=== PATIENT | male | born 1950 | race Caucasian/White ===

== ENCOUNTER 2016-11-14 10:35 | Day surgery (SDC) | payer MEDICARE, BC ==
[~2016-11-14 10:35] MED LIST: Buffered Lidocaine 0.9% SYRIN* 5 ML/SYR SYRINGE INTRADERM ONE; Famotidine IV* 10 MG/ML 2 ML (20 mg) IV ONE; Morphine INJ* 2 MG/ML 1 ML SYRINGE IV PRN; PROCHLORPERAZINE INJ 5 MG/ML 2 ML VIAL IV PRN; Scopolamine 1.5 mg* PATCH TRANSDERM PRN; fentaNYL* 50 MCG/ML 2 ML VIAL (100 MCG VIAL) IV PRN; oxyCODONE/Acetamin 5/325 MG* TAB PO PRN
[2016-11-14] MEDS ORDERED: Buffered Lidocaine 0.9% SYRIN* 5 ML/SYR SYRINGE ONE (10:43)
[2016-11-14] MEDS ORDERED: Famotidine IV* 10 MG/ML 2 ML (20 mg) ONE (10:43)
[2016-11-14] MEDS ORDERED: Ketorolac INJ* 30 MG/ML 1 ML VIAL ONE (10:43)
[2016-11-14] MEDS ORDERED: fentaNYL* 50 MCG/ML 2 ML VIAL (100 MCG VIAL) ONE (10:49)
[2016-11-14] MEDS ORDERED: KETAMINE HCL* 50 MG/ML 10 ML VIAL ONE (10:49)
[2016-11-14] MEDS ORDERED: Midazolam* 1 MG/ML 5 ML VIAL (5 MG) ONE (10:49)
[2016-11-14] MEDS ORDERED: Lidocaine 1% INJ* 10 MG/ML 30 ML SDV ONE (11:21)
[2016-11-14] MEDS ORDERED: Bupivacaine 0.5% W/EPI SDV* 10 ML VIAL INJ ONE (11:21)
[2016-11-14] MEDS ORDERED: Propofol* 10 MG/ML 20 ML BTL IV PUSH ONE (12:16)
[2016-11-14] MEDS ORDERED: Dexamethasone IV* 4 MG/ML 1 ML (4 MG) ONE (12:16)
[2016-11-14] MEDS ORDERED: Ondansetron INJ* 2 MG/ML VIAL ONE (12:16)
[2016-11-14] MEDS ORDERED: Lidocaine 2% PF * 5 ML VIAL ONE (12:16)
[2016-11-14] MEDS ORDERED: hydrALAZINE IV* 20 MG/ML VIAL ONE (12:40)
[2016-11-14 13:46] VITALS: BP 131/85
--- NOTE | 2016-11-15 00:11 | OP ---
CC: Enrique Sheridan DO * DATE OF OPERATION: 11/14/16 - [facility] DATE OF : 52 SURGEON: Dr. De La Cruz. TRAVELING REPRESENTATIVE: Sola Huddleston NP ANESTHESIOLOGIST: Dr. Mi. ANESTHESIA: LMAC anesthesia. PRE-OP DIAGNOSIS: Recurrent right inguinal hernia. POST-OP DIAGNOSIS: Recurrent right inguinal hernia. OPERATIVE PROCEDURE: Open repair of recurrent right inguinal hernia with mesh. DESCRIPTION OF PROCEDURE: The patient was supine on the operative table. After adequate intravenous sedation, compression stockings, Bharat Hugger warmer, and intravenous antibiotics, the right groin was clipped and prepped with antiseptic, draped in a sterile fashion. Local infiltrative anesthesia was administered. Previous incision was again reentered over about 8 cm. Dissection was carried down to the external oblique. Scarring was identified. The cord structures were dissected up and retracted with a Hulett drain. The direct space was without any evidence of recurrence. There was an indirect space hernia. This was dissected free. It was somewhat adherent to the cord structures, but it was dissected free and reduced and a cone mesh plug was placed into the internal ring, sutured there with 2-0 Polysorb. A second piece of mesh was placed over inguinal floor, sutured at the tubercle. Tails were split, brought around the cord structures and tacked down laterally. This piece of mesh was also sutured at the transversus abdominis and at the inguinal ligament. The external oblique was closed over top with 2-0 Polysorb, Sj's with 3-0 Polysorb, skin with 4-0 Surgipro followed by sterile dressing. He tolerated the procedure well, was awakened and brought to Recovery in good condition. No complications. No drains. No pathologic specimen. Sponge and instrument counts correct. Estimated blood loss is 10 mL. [id number]/[facility] #: [id number] [facility] HEALTHStephanie
[2016-11-17] MEDS ORDERED: Scopolomine PATCH Remove* 1 NOTE MISC PATCH OFF ONE (05:56)
== END 2016-11-14 13:45 | disposition home or self-care (01) ==
LOC: OR 10:35
PROVIDERS: ATTEND Surgery
PROC: 0YU50JZ Supplement Right Inguinal Region with Synthetic Substitute, Open Approach (ICD-10-PCS; principal; 2016-11-14 12:00)
DX: K40.91 Unilateral inguinal hernia, without obstruction or gangrene, recurrent (principal); Z87.891 Personal history of nicotine dependence; I10 Essential (primary) hypertension
CPT/HCPCS: C1781; J0360; J1100; J1885; J2001; J2250; J2405; J2704; J3010

== ENCOUNTER 2023-10-26 06:06 | Observation (INO) ==
[2023-10-26 06:33] LABS: ABS Lymphocytes 0.6 10^3/uL (1.0-4.8); ABS Monocytes 0.2 10^3/uL (0.0-1.1); ABS Neutrophils 4.7 10^3/uL (1.5-7.6); Hematocrit 43.2 % (38-53); Hemoglobin 14.7 g/dL (13.2-16.3); Mean Corpuscular Hgb Conc 34.1 g/dL (31-36); Mean Corpuscular Volume 93.9 fL (80-97); Mean Platelet Volume 9.1 fL (7.5-11.2); Platelet Count 143 10^3/uL (150-450); White Blood Count 5.6 10^3/uL (3.6-10.2)
[2023-10-26 06:47] LABS: INR 1.43 (0.83-1.13)
[2023-10-26 07:20] LABS: Albumin 4.3 g/dL (3.2-5.2); Albumin/Globulin Ratio 1.8 (1-3); Calcium 10.4 mg/dL (8.6-10.3); Creatinine, Serum 1.13 mg/dL (0.67-1.17); Globulin 2.4 g/dL (2-4); Potassium 4.4 mmol/L (3.5-5.0); Total Bilirubin 1.7 mg/dL (0.2-1.0); Total Protein 6.7 g/dL (6.4-8.9); eGFR CKD-EPI 69.1 (>60)
[2023-10-26 08:14] LABS: CRP High Sensitivity 0.83 mg/L (<2.00)
[2023-10-26] MEDS ORDERED: Ondansetron 4 mg VIAL 2 MG/ML 2 ml VIAL IV PRN (10:40)
[2023-10-26] MEDS: cefTRIAXone 1 gm/50 mL D5W 1 GM/50 ML BAG IV SCH (11:59)
[2023-10-26] MEDS: Enoxaparin 80 MG/0.8 ML SYR SUBCUT SCH (21:40)
[2023-10-27 06:02] LABS: ABS Lymphocytes 0.8 10^3/uL (1.0-4.8); ABS Monocytes 0.5 10^3/uL (0.0-1.1); ABS Neutrophils 5.8 10^3/uL (1.5-7.6); Eosinophil % 0.1 %; Hematocrit 41.5 % (38-53); Hemoglobin 14.1 g/dL (13.2-16.3); Lymphocyte % 11.4 %; Mean Corpuscular Hemoglobin 31.9 pg (27-33); Mean Corpuscular Volume 93.9 fL (80-97); Mean Platelet Volume 10.1 fL (7.5-11.2); Platelet Count 150 10^3/uL (150-450); Red Blood Count 4.42 10^6/uL (4.06-5.63); Red Cell Distribution Width 13.2 % (12-17); White Blood Count 7.2 10^3/uL (3.6-10.2)
[2023-10-27 06:29] LABS: ALT 34 U/L (7-52); Albumin 3.7 g/dL (3.2-5.2); Albumin/Globulin Ratio 1.7 (1-3); Alkaline Phosphatase 69 U/L (35-149); Anion Gap 5 mmol/L (2-16); Blood Urea Nitrogen 25 mg/dL (6-24); CO2 Carbon Dioxide 31 mmol/L (22-32); Calcium 8.9 mg/dL (8.6-10.3); Chloride 101 mmol/L (101-111); Creatinine, Serum 0.95 mg/dL (0.67-1.17); Globulin 2.2 g/dL (2-4); Glucose 103 mg/dL (70-100); Sodium 137 mmol/L (135-145); Total Bilirubin 1.3 mg/dL (0.2-1.0); Total Protein 5.9 g/dL (6.4-8.9)
[2023-10-27] MEDS: CMCS:DAPAGLIFLOZIN 10 MG TAB (NF) PO SCH (09:25)
[2023-10-27 10:08] LABS: Potassium Redraw 4.7 mmol/L (3.5-5.0)
[2023-10-27] MEDS ORDERED: Naloxone 0.4 mg VIAL 0.4 mg/ml 1 ml VIAL IV PRN (10:52)
[2023-10-27] MEDS ORDERED: fentaNYL 100 mcg/2 ml 50 MCG/ML VIAL IV PRN (10:52)
[2023-10-28 05:47] LABS: ABS Lymphocytes 1.1 10^3/uL (1.0-4.8); ABS Monocytes 0.5 10^3/uL (0.0-1.1); ABS Neutrophils 3.5 10^3/uL (1.5-7.6); Eosinophil % 0.5 %; Hematocrit 40.4 % (38-53); Hemoglobin 14.1 g/dL (13.2-16.3); Lymphocyte % 20.6 %; Mean Corpuscular Hemoglobin 32.5 pg (27-33); Mean Corpuscular Hgb Conc 34.8 g/dL (31-36); Mean Corpuscular Volume 93.3 fL (80-97); Mean Platelet Volume 9.1 fL (7.5-11.2); Platelet Count 130 10^3/uL (150-450); Red Blood Count 4.33 10^6/uL (4.06-5.63); Red Cell Distribution Width 13.1 % (12-17); White Blood Count 5.1 10^3/uL (3.6-10.2)
[2023-10-28] MEDS ORDERED: Buffered Lidocaine 1% SYRIN 1 ml INTRADERM ONE (06:00)
[2023-10-28] MEDS ORDERED: Lactated Ringers 1000 ml BAG 1,000 ML IV SCH (06:00)
[2023-10-28 06:04] LABS: Calcium 8.9 mg/dL (8.6-10.3); Creatinine, Serum 0.93 mg/dL (0.67-1.17); Magnesium 2.2 mg/dL (1.9-2.7); Potassium 4.1 mmol/L (3.5-5.0); eGFR CKD-EPI 87.2 (>60)
[2023-10-28] MEDS: Lactated Ringers 1000 ml BAG 1,000 ML IV ONE (09:55)
[2023-10-28] MEDS ORDERED: Midazolam 2 mg/2 ml VIAL 1 mg/ml 2 ml VIAL (2 mg) ONE (10:38)
[2023-10-28] MEDS ORDERED: Propofol 10 MG/ML 20 ML BTL ONE (10:38)
[2023-10-28] MEDS ORDERED: Rocuronium 50 mg VIAL 10 mg/ml 5 ml VIAL (50 mg) ONE ×2 (10:38→12:58)
[2023-10-28] MEDS ORDERED: fentaNYL 100 mcg/2 ml 50 MCG/ML VIAL ONE ×2 (10:38→13:23)
[2023-10-28] MEDS ORDERED: Lidocaine 2% PF 5 ML VIAL ONE ×2 (10:38→14:16)
[2023-10-28] MEDS ORDERED: fentaNYL 100 mcg/2 ml 50 MCG/ML VIAL IV PRN (11:16)
[2023-10-28] MEDS ORDERED: Naloxone 0.4 mg VIAL 0.4 mg/ml 1 ml VIAL IV PRN (11:16)
[2023-10-28] MEDS ORDERED: Bupivacaine 0.25% EPI 200,000 30 ML SDV ONE (11:46)
[2023-10-28] MEDS ORDERED: Glycopyrrolate IV 0.2 MG/ML 1 ML VIAL ONE ×2 (11:59→12:15)
[2023-10-28] MEDS ORDERED: Phenylephrine IV 10 MG/ML 1 ml VIAL ONE (12:00)
[2023-10-28] MEDS ORDERED: Dexamethasone IV 4 MG/ML VIAL 1 ml VIAL ONE (12:25)
[2023-10-28] MEDS ORDERED: Ondansetron 4 mg VIAL 2 MG/ML 2 ml VIAL ONE (12:25)
[2023-10-28] MEDS ORDERED: Acetaminophen IV 1 GM/100ML 1,000 MG/100 ML BAG IV ONE (12:54)
[2023-10-28] MEDS ORDERED: Sevoflurane BOTTLE ONE (13:40)
[2023-10-28] MEDS ORDERED: Desflurane 240 ML INH ONE (13:40)
[2023-10-28] MEDS: Lactated Ringers 1000 ml BAG 500 ML IV ONE (16:28)
[2023-10-28] MEDS: Enoxaparin 40 MG/0.4 ML SYR SUBCUT SCH (16:29)
[2023-10-29 06:22] LABS: ABS Lymphocytes 0.5 10^3/uL (1.0-4.8); ABS Monocytes 0.6 10^3/uL (0.0-1.1); ABS Neutrophils 8.3 10^3/uL (1.5-7.6); ABS Nucleated RBC 0.01 10^3/ul; Hematocrit 42.8 % (38-53); Hemoglobin 14.5 g/dL (13.2-16.3); Lymphocyte % 5.5 %; Mean Corpuscular Hemoglobin 31.9 pg (27-33); Mean Corpuscular Hgb Conc 33.9 g/dL (31-36); Mean Corpuscular Volume 94.3 fL (80-97); Mean Platelet Volume 9.6 fL (7.5-11.2); Nucleated Red Blood Cells % 0.1 %/100WBC (0.0-0.8); Platelet Count 166 10^3/uL (150-450); Red Blood Count 4.54 10^6/uL (4.06-5.63); White Blood Count 9.4 10^3/uL (3.6-10.2)
[2023-10-29 06:52] LABS: Creatinine, Serum 1.11 mg/dL (0.67-1.17); Magnesium 2.2 mg/dL (1.9-2.7); Potassium 4.8 mmol/L (3.5-5.0); eGFR CKD-EPI 70.6 (>60)
[2023-10-29 10:08] VITALS: BP 103/68
== END 2023-10-29 12:30 | disposition home or self-care (01) ==
LOC: EDHOLD 06:06 → ED 06:06 → SUATTDRO 10:40 → MED 10-27 09:26
PROVIDERS: ADMIT Hospitalist; ATTEND Student in an Organized Health Care Education/Training Program